=== PATIENT | male | born 1975 | race Caucasian/White ===

== ENCOUNTER 2017-02-20 20:54 | Emergency (ER) | payer SELFPAY ==
[2017-02-20 21:05] VITALS: BP 154/97; PULSE 61; RESP 16; TEMP 99.1; O2SAT 98
--- NOTE | 2017-02-20 21:48 | EDPHY ---
H & P Stated Complaint: rt arm gash, fell onto a plate Source: Patient - Personal History Current Tetanus/Diphtheria Vaccine: Yes Current Tetanus Diphtheria and Acellular Pertussis (TDAP): Yes Tetanus Vaccine Date: 2011 - Medical/Surgical History Hx Asthma: No Hx Chronic Respiratory Disease: No Hx Diabetes: No Hx Cardiac Disease: No Hx Renal Disease: No Hx Cirrhosis: No Hx Alcoholism: No Hx HIV/AIDS: No Hx Splenectomy or Spleen Trauma: No Other PMH: pulmonary stenosis, pacemaker, transposition of the great vessels, sick sinus syndrome, - Social History Smoking Status: Current some day smoker HPI/ROS: Adult HPI 1 (Ela Escalante) This patient was not seen by Dr. Ela Escalante. Patient was only seen by myself. HPI CHIEF COMPLAINT: Right arm laceration HISTORY OF PRESENT ILLNESS: This patient very pleasant 41-year-old male, significant past medical history for transposition of the great vessels, and complete heart block, sick sinus syndrome, pacemaker, presents emergency room with a laceration to the right anterior cubital fossa. Patient was carrying a stack of plates and plate broke and cut his arm. Is a vertical laceration approximately 4 cm in length. He tells me this happened at his employer at his work however tells me this is not a fall under workman's Comp as he is not going to cleaned under workman's Comp. 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 Denies any other areas of injury. He tells me his tetanus shot is up-to-date. Past Medical History: Transposition of the great vessels. Sick sinus syndrome , complete heart block. Pacemaker Past Surgical History: Pacemaker, cardiac surgeries. Social History: Denies daily use drugs alcohol tobacco products Family History: Noncontributory ROS REVIEW OF SYSTEMS: A comprehensive 10 point review of systems is otherwise negative aside from elements mentioned in the history of present illness. Exam Constitutional appears well nontoxic triage nursing summary reviewed, vital signs reviewed, awake/alert. Eyes normal conjunctivae and sclera, EOMI, PERRLA. HENT normal inspection, atraumatic, moist mucus membranes, no epistaxis, neck supple/ no meningismus, no raccoon eyes. Respiratory clear to auscultation bilaterally, normal breath sounds, no respiratory distress, no wheezing. Cardiovascular rate normal, regular rhythm, no murmur, no edema, distal pulses normal. Gastrointestinal soft, non-tender, no rebound, no guarding, normal bowel sounds, no distension, no pulsatile mass. Genitourinary no CVA tenderness. Musculoskeletal no midline vertebral tenderness, full range of motion, no calf swelling, no tenderness of extremities, no meningismus, good pulses, neurovascularly intact. Skin right antecubital fossa, 4 cm vertical laceration, no tendon injury, no arterial injury, no foreign bodies. pink, warm, & dry, no rash, skin atraumatic. Neurologic awake, alert and oriented x 3, AAOx3, moves all 4 extremities equally, motor intact, sensory intact, CN II-XII intact, normal cerebellar, normal vision, normal speech. Psychiatric normal mood/affect. Heme/Lymph/Immune no lymphadenopathy. Differential Diagnosis: Includes but is not limited to in a particular order right arm laceration, wound care, soft tissue injury. Medical Decision Making: Plan for this patient sterilely repair his wound cleaned out. And suture close his laceration. Laceration Repair Procedure: Verbal Consent was obtained, Under sterile conditions, The patient had lidocaine with epinephrine used approximately 7ccs to local anesthetize the 4cm vertical right arm Laceration. The wound was copiously irrigated with sterile fluid, the wound was explored for foreign bodies there were none visualized, the wound was explored with a sterile glove to the base. There are no deep structures involved, including no arterial injury. 5 PROLENE 5.O interrupted Sutures were placed in this patient's laceration. He had good close approximation of the wound edges. He Tolerated this well. Eats tolerated this procedure well. Tetanus shot up-to-date. Dressing in place. Patient understands have sutures removed in the 10 days. Of note this wound was explored extensively. No arterial or tendon injury. The biceps tendon injury. No brachial artery injury. No foreign body. (Gordon Khan) Constitutional: Initial Vital Signs Temperature (C) 37.3 C 02/20/17 21:00 Heart Rate 61 02/20/17 21:00 Respiratory Rate 16 02/20/17 21:00 Blood Pressure 154/97 H 02/20/17 21:00 O2 Sat (%) 98 02/20/17 21:00 O2 Delivery Mode Room Air Allergies/Adverse Reactions: red dye [Red Dye] Allergy (Unknown, Verified 02/20/17 20:59) Penicillins Allergy (Verified 02/20/17 20:59) DILATING DRUGS Allergy (Unknown, Uncoded 06/27/12 03:37) Home Medications: Medication Instructions Recorded NK [No Known Home Meds] 02/20/17 Departure - Departure Disposition: Home, Routine, Self-Care Clinical Impression: Laceration Condition: Good Instructions: Laceration (ED), Care For Your Stitches (ED) Additional Instructions: 1. Keep her wound clean, dry, protected. 2. You may shower get warm soapy water over. No lakes, hall, hot tubs, pools. 3. Your sutures need to be removed in 10 days.
== END 2017-02-20 22:38 | disposition home or self-care (01) ==
PROC: 0HQBXZZ Repair Right Upper Arm Skin, External Approach (ICD-10-PCS; principal; 2017-02-20)
DX: S41.111A Laceration without foreign body of right upper arm, initial encounter (principal); F17.200 Nicotine dependence, unspecified, uncomplicated; Z95.0 Presence of cardiac pacemaker; W26.8XXA Contact with other sharp object(s), not elsewhere classified, initial encounter